=== PATIENT | male | born 1955 | race Caucasian/White ===

== ENCOUNTER → 2016-12-04 | Outpatient (CLI) | payer BC ==
[2016-12-04 07:38] LABS: Blood Urea Nitrogen 17 mg/dL (9-20); Non-African American GFR(MDRD) >60 (>60 ml/min/1.73 sqM)
== END | disposition home or self-care (01) ==
LOC: LABWHC1 06:53
PROVIDERS: ATTEND Anesthesiology
DX: Z01.812 Encounter for preprocedural laboratory examination (principal)
CPT/HCPCS: 36415; 82565; 84520

== ENCOUNTER → 2017-02-27 | Outpatient (CLI) | payer BC ==
[2017-02-27 08:09] LABS: Anion Gap 12 mmol/L; Blood Urea Nitrogen 16 mg/dL (9-20); Calcium 8.9 mg/dL (8.4-10.2); Carbon Dioxide 27 mmol/L (22-30); Chloride 103 mmol/L (98-107); Cholesterol 196 mg/dL (<200); Glucose 104 mg/dL (74-99); HDL Cholesterol 40 mg/dL (40-60); Non-African American GFR(MDRD) >60 (>60 ml/min/1.73 sqM); Potassium 4.2 mmol/L (3.5-5.1); Sodium 142 mmol/L (137-145); Triglycerides 310 mg/dL (<150)
== END | disposition home or self-care (01) ==
LOC: LABWHC1 07:02
PROVIDERS: ATTEND Family Medicine
DX: I10 Essential (primary) hypertension (principal)
CPT/HCPCS: 36415; 80048; 80061

== ENCOUNTER → 2017-09-10 | Outpatient (CLI) | payer BC | END | disposition home or self-care (01) | LOC: LABPAT 15:02 | PROVIDERS: ATTEND Orthopaedic Surgery | DX: Z01.812 Encounter for preprocedural laboratory examination (principal) | CPT/HCPCS: 86850; 86900; 86901; 87070 ==

== ENCOUNTER 2020-10-12 05:56 | Inpatient (IN) | payer SELFPAY ==
--- NOTE | 2020-10-12 06:52 | ED ---
General Adult HPI - General Chief complaint: Shortness of Breath Stated complaint: JOJO Time Seen by Provider: 10/12/20 06:01 Source: patient, RN notes reviewed Mode of arrival: ambulatory Limitations: no limitations - History of Present Illness Initial comments: This a 64-year-old male presents emergency Department with chief complaint of shortness of breath, cough congestion. Patient states she's been sick for last 11 days. Patient states is progressively worsening last 3-4 days. Patient states he has some shortness of breath and productive cough. He has no chest pain. Patient states that his is positive for covid. Patient reports no f van. Patient denies Abdominal issues no GI symptoms including nausea vomiting diarrhea constipation. Has no prior pulmonary cardiac disease. - Related Data Home Medications Medication Instructions Recorded Confirmed Omeprazole 20 mg PO BID 08/19/15 09/20/17 lisinopriL [Lisinopril] 20 mg PO DAILY 08/19/15 09/20/17 Fish Oil/Dha/Epa [Fish Oil 1,200 1 cap PO BID 10/20/15 09/20/17 mg Fish Oil] Potassium 99 mg PO DAILY 10/20/15 09/20/17 Tamsulosin HCl 0.4 mg PO HS 09/23/16 09/20/17 Morphine Sulfate ER [Ms Contin] 30 mg PO Q12HR 09/16/17 09/20/17 Multivitamin [Men's Multi-Vitamin] 1 tab PO DAILY 09/16/17 09/20/17 Magnesium Oxide [Mag-Ox] 250 mg PO BID 09/20/17 09/20/17 Pregabalin [Lyrica] 200 mg PO BID 09/20/17 09/20/17 Previous Rx's Medication Instructions Recorded Aspirin 325 mg PO BID #60 tab 09/21/17 Cefuroxime [Ceftin] 250 mg PO BID #20 tab 09/21/17 HYDROcodone/APAP 7.5-325MG [[place] 1 tab PO Q4H PRN #28 tab 09/21/17 7.5-325] Meloxicam [Mobic] 7.5 mg PO DAILY #30 tab 09/21/17 Sennosides-Docusate Sodium 2 each PO HS tab 09/21/17 [Senokot-S] Allergies Allergy/AdvReac Type Severity Reaction Status Date / Time cat dander Allergy Cough Verified 09/20/17 09:52 grass pollen Allergy Cough Verified 09/20/17 09:52 mold Allergy Cough Verified 09/20/17 09:52 Review of Systems ROS Statement: Those systems with pertinent positive or pertinent negative responses have been documented in the HPI. ROS Other: All systems not noted in ROS Statement are negative. Past Medical History Past Medical History: GERD/Reflux, Hyperlipidemia, Hypertension, Musculoskeletal Disorder, Osteoarthritis (OA), Prostate Disorder Additional Past Medical History / Comment(s): Hypertension and hypertensive cardio vascular disease, hyperlipidemia, GERD, osteoarthritis, degenerative disc disease of the lumbar spine status post discectomy with fusion and bilateral neuropathy, BPH. History of Any Multi-Drug Resistant Organisms: None Reported Past Surgical History: Back Surgery, Joint Replacement, Tonsillectomy Additional Past Surgical History / Comment(s): CERVICAL FUSION. L5-S1 DISECTOMY 2008. L4-L5 LAMINECTOMY X 2 2007. Hardware removal and placement of screw pedicles and bone cadaver was done by Dr. Arguello at the [facility] 07/21/2010. Colonoscopy 05/10/2008 followed by anyone in May 11 [id number].hip replacement 08/26/[address] Campa. COLONOSCOPY. EGD Past Anesthesia/Blood Transfusion Reactions: No Reported Reaction Past Psychological History: No Psychological Hx Reported Smoking Status: Never smoker Past Alcohol Use History: Daily, Occasional Past Drug Use History: None Reported - Past Family History Daughter(s) Family Medical History: No Reported History Mother Family Medical History: Cancer (Breast cancer at age 53) Additional Family Medical History / Comment(s): breast cancer Sister(s) Family Medical History: Cancer (Breast cancer and skin CANCER) Father History Unknown: Yes Family Medical History: Cancer (Skin cancer), Hypertension General Exam Limitations: no limitations General appearance: alert, in no apparent distress Head exam: Present: atraumatic, normocephalic, normal inspection Eye exam: Present: normal appearance, PERRL, EOMI. Absent: scleral icterus, conjunctival injection, periorbital swelling ENT exam: Present: normal exam, normal oropharynx, mucous membranes moist Neck exam: Present: normal inspection, full ROM. Absent: tenderness, meningismus, lymphadenopathy Respiratory exam: Present: wheezes, decreased breath sounds. Absent: respiratory distress, rales, rhonchi, stridor Cardiovascular Exam: Present: regular rate, normal rhythm, normal heart sounds. Absent: systolic murmur, diastolic murmur, rubs, gallop, clicks GI/Abdominal exam: Present: soft, normal bowel sounds. Absent: distended, tenderness, guarding, rebound, rigid Course Vital Signs 10/12/20 10/12/20 06:06 07:17 Temperature 98.5 F Pulse Rate 83 84 Respiratory 20 20 Rate Blood Pressure 131/77 127/67 O2 Sat by Pulse 94 L 97 Oximetry Medical Decision Making - Medical Decision Making EKG performed at 6:28 normal sinus rhythm rate of 88 ND 166 QRS 92 QT status QTC 346/418 64-year-old presented for cough congestion shortness of breath. Patient does have chronic virus pneumonia. Patient remains to be short of breath, hypoxic on room air patient will be admitted for further treatment. Case discussed with Dr. zuniga - Lab Data Result diagrams: 10/12/20 06:49 10/12/20 06:49 Lab Results 10/12/20 10/12/20 10/12/20 Range/Units 06:49 06:49 06:49 WBC 5.5 (3.8-10.6) k/uL RBC 4.29 L (4.30-5.90) m/uL Hgb 14.1 (13.0-17.5) gm/dL Hct 38.9 L (39.0-53.0) % MCV 90.6 (80.0-100.0) fL MCH 32.9 (25.0-35.0) pg MCHC 36.4 (31.0-37.0) g/dL RDW 11.3 L (11.5-15.5) % Plt Count 117 L (150-450) k/uL MPV 7.9 Neutrophils % 85 % Lymphocytes % 9 % Monocytes % 5 % Eosinophils % 0 % Basophils % 1 % Neutrophils # 4.7 (1.3-7.7) k/uL Lymphocytes # 0.5 L (1.0-4.8) k/uL Monocytes # 0.3 (0-1.0) k/uL Eosinophils # 0.0 (0-0.7) k/uL Basophils # 0.0 (0-0.2) k/uL PT 9.4 (9.0-12.0) sec INR 0.9 (<1.2) APTT 24.9 (22.0-30.0) sec D-Dimer 0.25 (<0.60) mg/L FEU Sodium 134 L (137-145) mmol/L Potassium 4.1 (3.5-5.1) mmol/L Chloride 102 (98-107) mmol/L Carbon Dioxide 23 (22-30) mmol/L Anion Gap 9 mmol/L BUN 17 (9-20) mg/dL Creatinine 0.79 (0.66-1.25) mg/dL Est GFR (CKD-EPI)AfAm >90 (>60 ml/min/1.73 sqM) Est GFR (CKD-EPI)NonAf >90 (>60 ml/min/1.73 sqM) Glucose 117 H (74-99) mg/dL Plasma Lactic Acid Jesus Alberto (0.7-2.0) mmol/L Calcium 8.4 (8.4-10.2) mg/dL Magnesium 1.8 (1.6-2.3) mg/dL Total Bilirubin 0.8 (0.2-1.3) mg/dL AST 36 (17-59) U/L ALT 25 (4-49) U/L Alkaline Phosphatase 73 (38-126) U/L Troponin I (0.000-0.034) ng/mL C-Reactive Protein 49.4 H (<10.0) mg/L NT-Pro-B Natriuret Pep pg/mL Total Protein 6.6 (6.3-8.2) g/dL Albumin 3.9 (3.5-5.0) g/dL Coronavirus (PCR) (Not Detectd) 10/12/20 10/12/20 10/12/20 Range/Units 06:49 06:49 06:49 WBC (3.8-10.6) k/uL RBC (4.30-5.90) m/uL Hgb (13.0-17.5) gm/dL Hct (39.0-53.0) % MCV (80.0-100.0) fL MCH (25.0-35.0) pg MCHC (31.0-37.0) g/dL RDW (11.5-15.5) % Plt Count (150-450) k/uL MPV Neutrophils % % Lymphocytes % % Monocytes % % Eosinophils % % Basophils % % Neutrophils # (1.3-7.7) k/uL Lymphocytes # (1.0-4.8) k/uL Monocytes # (0-1.0) k/uL Eosinophils # (0-0.7) k/uL Basophils # (0-0.2) k/uL PT (9.0-12.0) sec INR (<1.2) APTT (22.0-30.0) sec D-Dimer (<0.60) mg/L FEU Sodium (137-145) mmol/L Potassium (3.5-5.1) mmol/L Chloride (98-107) mmol/L Carbon Dioxide (22-30) mmol/L Anion Gap mmol/L BUN (9-20) mg/dL Creatinine (0.66-1.25) mg/dL Est GFR (CKD-EPI)AfAm (>60 ml/min/1.73 sqM) Est GFR (CKD-EPI)NonAf (>60 ml/min/1.73 sqM) Glucose (74-99) mg/dL Plasma Lactic Acid Jesus Alberto 0.9 (0.7-2.0) mmol/L Calcium (8.4-10.2) mg/dL Magnesium (1.6-2.3) mg/dL Total Bilirubin (0.2-1.3) mg/dL AST (17-59) U/L ALT (4-49) U/L Alkaline Phosphatase (38-126) U/L Troponin I <0.012 (0.000-0.034) ng/mL C-Reactive Protein (<10.0) mg/L NT-Pro-B Natriuret Pep 73 pg/mL Total Protein (6.3-8.2) g/dL Albumin (3.5-5.0) g/dL Coronavirus (PCR) (Not Detectd) 10/12/20 Range/Units 06:50 WBC (3.8-10.6) k/uL RBC (4.30-5.90) m/uL Hgb (13.0-17.5) gm/dL Hct (39.0-53.0) % MCV (80.0-100.0) fL MCH (25.0-35.0) pg MCHC (31.0-37.0) g/dL RDW (11.5-15.5) % Plt Count (150-450) k/uL MPV Neutrophils % % Lymphocytes % % Monocytes % % Eosinophils % % Basophils % % Neutrophils # (1.3-7.7) k/uL Lymphocytes # (1.0-4.8) k/uL Monocytes # (0-1.0) k/uL Eosinophils # (0-0.7) k/uL Basophils # (0-0.2) k/uL PT (9.0-12.0) sec INR (<1.2) APTT (22.0-30.0) sec D-Dimer (<0.60) mg/L FEU Sodium (137-145) mmol/L Potassium (3.5-5.1) mmol/L Chloride (98-107) mmol/L Carbon Dioxide (22-30) mmol/L Anion Gap mmol/L BUN (9-20) mg/dL Creatinine (0.66-1.25) mg/dL Est GFR (CKD-EPI)AfAm (>60 ml/min/1.73 sqM) Est GFR (CKD-EPI)NonAf (>60 ml/min/1.73 sqM) Glucose (74-99) mg/dL Plasma Lactic Acid Jesus Alberto (0.7-2.0) mmol/L Calcium (8.4-10.2) mg/dL Magnesium (1.6-2.3) mg/dL Total Bilirubin (0.2-1.3) mg/dL AST (17-59) U/L ALT (4-49) U/L Alkaline Phosphatase (38-126) U/L Troponin I (0.000-0.034) ng/mL C-Reactive Protein (<10.0) mg/L NT-Pro-B Natriuret Pep pg/mL Total Protein (6.3-8.2) g/dL Albumin (3.5-5.0) g/dL Coronavirus (PCR) Detected A (Not Detectd) Disposition Clinical Impression: Pneumonia due to COVID-19 virus, Hypoxia Disposition: ADMITTED IP TO THIS [facility] Condition: Fair Referrals: Jose Guadalupe Cardenas MD [Primary Care Provider] - 1-2 days
[2020-10-12 06:57] LABS: Basophils % (A) 1 %; Eosinophils % (A) 0 %; HCT 38.9 % (39.0-53.0); HGB 14.1 gm/dL (13.0-17.5); Lymphocytes # (A) 0.5 k/uL (1.0-4.8); Lymphocytes % (A) 9 %; MCH 32.9 pg (25.0-35.0); MCHC 36.4 g/dL (31.0-37.0); MCV 90.6 fL (80.0-100.0); Mean Platelet Volume 7.9; Monocytes # (A) 0.3 k/uL (0-1.0); Monocytes % (A) 5 %; Neutrophils # (A) 4.7 k/uL (1.3-7.7); Neutrophils % (A) 85 %; Platelet Count 117 k/uL (150-450); RBC 4.29 m/uL (4.30-5.90); RDW 11.3 % (11.5-15.5); WBC 5.5 k/uL (3.8-10.6)
[2020-10-12 07:07] LABS: ALT 25 U/L (4-49); AST 36 U/L (17-59); African American GFR (CKD) >90 (>60 ml/min/1.73 sqM); Albumin 3.9 g/dL (3.5-5.0); Alkaline Phosphatase 73 U/L (38-126); Anion Gap 9 mmol/L; Blood Urea Nitrogen 17 mg/dL (9-20); Calcium 8.4 mg/dL (8.4-10.2); Carbon Dioxide 23 mmol/L (22-30); Chloride 102 mmol/L (98-107); Glucose 117 mg/dL (74-99); Magnesium 1.8 mg/dL (1.6-2.3); Non-African American GFR(CKD) >90 (>60 ml/min/1.73 sqM); Potassium 4.1 mmol/L (3.5-5.1); Sodium 134 mmol/L (137-145); Total Bilirubin 0.8 mg/dL (0.2-1.3); Total Protein 6.6 g/dL (6.3-8.2)
[2020-10-12 07:16] LABS: D-Dimer 0.25 mg/L FEU (<0.60); INR 0.9 (<1.2); Partial Thromboplastin Time 24.9 sec (22.0-30.0); Prothrombin Time 9.4 sec (9.0-12.0)
--- NOTE | 2020-10-12 07:21 | XR ---
EXAMINATION TYPE: XR chest 2V DATE OF EXAM: 10/12/2020 COMPARISON: 03/20/2014 HISTORY: Shortness of breath TECHNIQUE: Frontal and lateral views of the chest are obtained. FINDINGS: Scattered senescent parenchymal changes noted. Hyperinflation compatible with COPD. Patchy density at the lung bases is suspicious for developing pneumonia. Heart size is stable. Mediastinal structures are stable and grossly unremarkable. No evidence for hilar prominence. Degenerative changes dorsal spine. IMPRESSION: 1. Patchy density at the lung bases is suspicious for developing pneumonia.
[2020-10-12 08:09] LABS: C Reactive Protein 49.4 mg/L (<10.0)
[2020-10-12] MEDS ORDERED: ALBUTEROL HFA INHALER INHALATION PRN (08:12)
[2020-10-12] MEDS ORDERED: ACETAMINOPHEN TAB 325 MG TAB PO PRN (08:12)
[2020-10-12] MEDS ORDERED: guaiFENesin-Coden 100-10MG/5ML 10 ML CUP PO PRN (09:24)
[2020-10-12] MEDS: ENOXAPARIN 40 MG/0.4 ML SYRINGE SQ SCH (09:34)
[2020-10-12] MEDS: ASCORBIC ACID 500 MG TAB PO SCH (09:34)
[2020-10-12] MEDS: BENZONATATE 100 MG CAP PO PRN (09:34)
[2020-10-12] MEDS: dexAMETHasone 2 MG TAB PO SCH (09:34)
[2020-10-12] MEDS: ZINC SULFATE 220 MG CAP PO SCH (09:40)
[2020-10-12] MEDS ORDERED: KETOROLAC 15 MG/ML 1 ML VIAL IVP SCH (12:00)
--- NOTE | 2020-10-12 12:06 | P.HPIM ---
History of Present Illness H&P Date: 10/12/20 HISTORY OF PRESENT ILLNESS This is a 64-year-old male one of Dr. Cardenas with a previous medical history for hypertension, hyperlipidemia, gastroesophageal reflux disease, degenerative disc disease of the lumbar spine and the cervical spine status post multiple surgical interventions. Patient states that he has had symptoms of covert for 11 days. His was diagnosed last week and had the same symptoms. They had most likely obtaining this from her [id number] that was positive for covert. He complains of severe headache, cough, white sputum production, loss of appetite. He states he has lost 5 pounds. He states he is not eating very much but thought he was drinking sufficiently although he is not urinating very much. He complains of generalized weakness. He denies having any diarrhea. Patient came into [facility] emergency center for evaluation. COVID-19 positive. Temperature 100.4, heart rate 84, blood pressure 125/71, p ulse ox 96% on 2 L nasal cannula. WBC 5.5, hemoglobin 14.1. Lymphopenia at 0.5. Sodium 134, creatinine 0.79, potassium 4.1. Magnesium 1.8, liver function tests normal. LDH 661, C-reactive protein 49.4. Chest x-ray reveals patchy density of the lung bases suspicious for developing pneumonia. EKG is sinus rhythm with no acute ST changes. Patient started on vitamin C, vitamin D, zinc, Robitussin with codeine, dexamethasone 6 mg daily, Tessalon Perles, Lovenox. Consult with Dr. Moreno. REVIEW OF SYSTEMS Constitutional: Reports fever, Reports chills,Reports sweats. Reports weight change. Reports weakness, fatigue or lethargy. No daytime sleepiness. EENT: Reports headache. No blurred vision or double vision, no loss of vision. No nasal drainage or congestion. No epistaxis. No sore throat. Lungs: Reports shortness of breath, reports dyspnea with exertion, Reports cough, Reports sputum production. No wheezing. Cardiovascular: Reports chest pain, no lower extremity edema. No palpitations. No paroxysmal nocturnal dyspnea. No orthopnea. No lightheadedness or dizziness. No syncopal episodes. Abdominal: No abdominal pain. No nausea, vomiting. No diarrhea. No constipation. No bloody or tarry stools. Reports loss of appetite. Genitourinary: No dysuria, increased frequency, urgency. No urinary retention. Musculoskeletal: Reports myalgias. Reports muscle weakness, no gait dysfunction, no frequent falls. No back pain. No neck pain. Integumentary: No wounds, no lesions. No rash or pruritus. No unusual bruising. Neurologic: No aphasia. No facial droop. No change in mentation. No head injury. No headache. Psychiatric: No depression. No anxiety. Endocrine: No abnormal blood sugars. SOCIAL HISTORY Patient quit smoking more than 30 years ago. He drinks alcohol socially. He denies any medical marijuana, marijuana or street drug use. Patient retired from [employer]. He lives at home with his . FAMILY HISTORY Mother at age 54 from breast cancer. Father is alive [id number] with history of hypertension. Sisters alive she has a history of cancer. PHYSICAL EXAMINATION Gen: This is extended to-year-old male. He is resting in the ER stretcher. No acute respiratory distress noted at rest. HEENT: Head is atraumatic, normocephalic. Pupils equal, round. Sclerae is anicteric. Oral mucous membranes slightly dry. NECK: Supple. No JVD. No lymphadenopathy. No thyromegaly. LUNGS: Crackles to the bilateral bases. No intercostal retractions. HEART: Regular rate and rhythm. No murmur. ABDOMEN: Soft. Bowel sounds are present. No masses. No tenderness. EXTREMITIES: No pedal edema. No calf tenderness. Dorsalis pedis palpable bilaterally. NEUROLOGICAL: Patient is awake, alert and oriented x3. Cranial nerves 2 through 12 are grossly intact. ASSESSMENT AND PLAN 1. Covid 19 pneumonia. Patient admitted to the MedSurg floor. Continue vitamin C, vitamin D, zinc, Robitussin with codeine, dexamethasone 6 mg daily, Tessalon Perles, Lovenox. Consult with Dr. Moreno. Continue oxygen supp lementation as necessary. 2. Hypertension and hypertensive cardiovascular disease. Continue lisinopril 20 mg orally once every day. 3. GERD. Continue omeprazole 20 mg orally twice per day. 4. Hyperlipidemia. Continue statin. 5. BPH. Continue Flomax 0.4 mg daily. 6. DVT prophylaxis. Lovenox subcu. 7. GI prophylaxis. Continue omeprazole 20 mg orally twice every day. Patient will be admitted to the hospital for a minimum of 2 night stay. DISCHARGE PLAN Return home. Impression and plan of care have been directed as dictated by the signing physician. María Torres nurse practitioner acting as scribe for signing physician.9 Past Medical History Past Medical History: GERD/Reflux, Hyperlipidemia, Hypertension, Musculoskeletal Disorder, Osteoarthritis (OA), Prostate Disorder Additional Past Medical History / Comment(s): Hypertension and hypertensive cardio vascular disease, hyperlipidemia, GERD, osteoarthritis, degenerative disc disease of the lumbar spine status post discectomy with fusion and bilateral neuropathy, BPH. History of Any Multi-Drug Resistant Organisms: None Reported Past Surgical History: Back Surgery, Joint Replacement, Tonsillectomy Additional Past Surgical History / Comment(s): CERVICAL FUSION. L5-S1 DISECTOMY 2008. L4-L5 LAMINECTOMY X 2 2007. Hardware removal and placement of screw pedicles and bone cadaver was done by Dr. Arguello at the [facility] 07/21/2010. Colonoscopy 05/10/2008 followed by anyone in May 11 [id number].hip replacement 08/26/[address] Campa. COLONOSCOPY. EGD Past Anesthesia/Blood Transfusion Reactions: No Reported Reaction Past Psychological History: No Psychological Hx Reported Smoking Status: Never smoker Past Alcohol Use History: Daily, Occasional Past Drug Use History: None Reported - Past Family History Daughter(s) Family Medical History: No Reported History Mother Family Medical History: Cancer (Breast cancer at age 53) Additional Family Medical History / Comment(s): breast cancer Sister(s) Family Medical History: Cancer (Breast cancer and skin CANCER) Father History Unknown: Yes Family Medical History: Cancer (Skin cancer), Hypertension Medications and Allergies Home Medications Medication Instructions Recorded Confirmed Type Omeprazole 20 mg PO BID 08/19/15 10/12/20 History lisinopriL [Lisinopril] 20 mg PO DAILY 08/19/15 10/12/20 History Tamsulosin HCl 0.4 mg PO DAILY 09/23/16 10/12/20 History Multivitamin [Men's Multi-Vitamin] 1 tab PO DAILY 09/16/17 10/12/20 History Ibuprofen [Motrin] 600 mg PO Q8HR PRN 10/12/20 10/12/[address] [place]-3 Fatty Acids/Fish Oil [Fish 1 cap PO DAILY 10/12/20 10/12/20 History Oil 1,000 mg Softgel] Rosuvastatin [Crestor] 10 mg PO HS 10/12/20 10/12/20 History Allergies Allergy/AdvReac Type Severity Reaction Status Date / Time cat dander Allergy Cough Verified 10/12/20 10:01 grass pollen Allergy Cough Verified 10/12/20 10:01 mold Allergy Cough Verified 10/12/20 10:01 Physical Exam Vitals: Vital Signs Temp Pulse Resp BP Pulse Ox 10/12/20 08:19 100.4 F H 84 18 125/71 96 10/12/20 07:17 84 20 127/67 97 10/12/20 06:06 98.5 F 83 20 131/77 94 L Intake and Output 10/11/20 10/12/20 10/12/20 22:59 06:59 14:59 Other: Weight 90.718 kg Results CBC & Chem 7: 10/12/20 06:49 10/12/20 06:49 Labs: Abnormal Lab Results - Last 24 Hours (Table) 10/12/20 10/12/20 10/12/20 Range/Units 06:49 06:49 06:49 RBC 4.29 L (4.30-5.90) m/uL Hct 38.9 L (39.0-53.0) % RDW 11.3 L (11.5-15.5) % Plt Count 117 L (150-450) k/uL Lymphocytes # 0.5 L (1.0-4.8) k/uL Sodium 134 L (137-145) mmol/L Glucose 117 H (74-99) mg/dL Lactate Dehydrogenase 661 H (313-618) U/L C-Reactive Protein 49.4 H (<10.0) mg/L Coronavirus (PCR) (Not Detectd) 10/12/20 Range/Units 06:50 RBC (4.30-5.90) m/uL Hct (39.0-53.0) % RDW (11.5-15.5) % Plt Count (150-450) k/uL Lymphocytes # (1.0-4.8) k/uL Sodium (137-145) mmol/L Glucose (74-99) mg/dL Lactate Dehydrogenase (313-618) U/L C-Reactive Protein (<10.0) mg/L Coronavirus (PCR) Detected A (Not Detectd)
[2020-10-12] MEDS: ALBUTEROL HFA INHALER INHALATION SCH ×3 (13:50→20:51)
[2020-10-12] MEDS: ACETAMINOPHEN TAB 500 MG TAB PO SCH ×3 (14:53→22:22)
[2020-10-12] MEDS ORDERED: REMDESIVIR (EUA) 200 MG in SODIUM CHLORIDE 0.9% 250 ML IVPB ONE (15:00)
--- NOTE | 2020-10-12 17:31 | P.CNPUL ---
History of Present Illness Consult date: 10/12/20 Reason for consult: pneumonia History of present illness: 62-year-old male patient presents exposed to several family members with Covid 19 infection. The patient stated that his symptoms started approximately 10 days ago. He was having major weakness and fatigue and tiredness. Around 3 days ago started having some increased cough and congestion and worsening shortness of breath. He came into the hospital with generalized weakness and hy poxemia. Initially was found to be hypoxic with a pulse ox of in the mid 80s. The patienton oxygen at 2 L and improved. He is currently on 2 L of oxygen by nasal cannula with pulse ox of 96%. White second of 5.5. He does have lymphopenia with a lymphocyte count of 0.5. LDH is at 661, C-reactive protein is at 49, chest x-ray showing some patchy density in the lungs most on the left compared to the right. EKG showing no acute abnormalities. No nausea. No vomiting. No diarrhea. No change in sense of taste or smell. No altered mentation. He is comorbid conditions include hypertension and hyperlipidemia and he has undergone multiple surgeries on his back and his neck for degenerative disc disease. Review of Systems Constitutional: Reports fatigue, Reports fever, Reports poor appetite, Reports weakness, Reports weight loss Eyes: denies as per HPI, denies blurred vision, denies bulging eye, denies decreased vision, denies diplopia, denies discharge, denies dry eye, denies irritation, denies itching, denies pain, denies photophobia, denies loss of peripheral vision, denies loss of vision, denies tunnel vision/blind spots Ears: deny: decreased hearing, ear discharge, earache, tinnitus Ears, nose, mouth and throat: Reports as per HPI Breasts: absent: as per HPI, gynecomastia Cardiovascular: Reports decreased exercise tolerance, Reports dyspnea on exertion Respiratory: Reports as per HPI, Reports dyspnea Gastrointestinal: Reports as per HPI, Reports loss of appetite Genitourinary: Reports as per HPI Musculoskeletal: Reports as per HPI Musculoskeletal: absent: ankle pain, ankle stiffness, ankle swelling, as per HPI, elbow pain, elbow stiffness, elbow swelling, foot pain, foot stiffness, foot swelling, hand pain, hand stiffness, hand swelling, hip pain, hip stiffness, hip swelling, knee pain, knee stiffness, knee swelling, shoulder pain, shoulder stiffness, shoulder swelling, wrist pain, wrist stiffness, wrist swelling Integumentary: Reports as per HPI Neurological: Reports as per HPI, Reports weakness Psychiatric: Reports as per HPI Endocrine: Reports as per HPI, Reports weight change Hematologic/Lymphatic: Reports as per HPI Allergic/Immunologic: Reports as per HPI Past Medical History Past Medical History: GERD/Reflux, Hyperlipidemia, Hypertension, Musculoskeletal Disorder, Osteoarthritis (OA), Prostate Disorder Additional Past Medical History / Comment(s): Hypertension and hypertensive cardio vascular disease, hyperlipidemia, GERD, osteoarthritis, degenerative disc disease of the lumbar spine status post discectomy with fusion and bilateral neuropathy, BPH. History of Any Multi-Drug Resistant Organisms: None Reported Past Surgical History: Back Surgery, Joint Replacement, Tonsillectomy Additional Past Surgical History / Comment(s): CERVICAL FUSION. L5-S1 DISECTOMY 2008. L4-L5 LAMINECTOMY X 2 2007. Hardware removal and placement of screw pedicles and bone cadaver was done by Dr. Arguello at the [facility] 07/21/2010. Colonoscopy 05/10/2008 followed by anyone in May 11 [id number].hip replacement 08/26/[address] Campa. COLONOSCOPY. EGD Past Anesthesia/Blood Transfusion Reactions: No Reported Reaction Past Psychological History: No Psychological Hx Reported Smoking Status: Never smoker Past Alcohol Use History: Daily, Occasional Past Drug Use History: None Reported - Past Family History Daughter(s) Family Medical History: No Reported History Mother Family Medical History: Cancer (Breast cancer at age 53) Additional Family Medical History / Comment(s): breast cancer Sister(s) Family Medical History: Cancer (Breast cancer and skin CANCER) Father History Unknown: Yes Family Medical History: Cancer (Skin cancer), Hypertension Medications and Allergies Home Medications Medication Instructions Recorded Confirmed Type Omeprazole 20 mg PO BID 08/19/15 10/12/20 History lisinopriL [Lisinopril] 20 mg PO DAILY 08/19/15 10/12/20 History Tamsulosin HCl 0.4 mg PO DAILY 09/23/16 10/12/20 History Multivitamin [Men's Multi-Vitamin] 1 tab PO DAILY 09/16/17 10/12/20 History Ibuprofen [Motrin] 600 mg PO Q8HR PRN 10/12/20 10/12/20 History [place]-3 Fatty Acids/Fish Oil [Fish 1 cap PO DAILY 10/12/20 10/12/20 History Oil 1,000 mg Softgel] Rosuvastatin [Crestor] 10 mg PO HS 10/12/20 10/12/20 History Allergies Allergy/AdvReac Type Severity Reaction Status Date / Time cat dander Allergy Cough Verified 10/12/20 10:01 grass pollen Allergy Cough Verified 10/12/20 10:01 mold Allergy Cough Verified 10/12/20 10:01 Physical Exam Vitals: Vital Signs Temp Pulse Pulse Resp BP BP Pulse Ox 10/12/20 15:00 97.7 F 71 16 117/69 96 10/12/20 11:30 98 F 78 16 115/65 96 10/12/20 09:41 98.1 F 80 18 118/68 96 10/12/20 08:19 100.4 F H 84 18 125/71 96 10/12/20 07:17 84 20 127/67 97 10/12/20 06:06 98.5 F 83 20 131/77 94 L Intake and Output 10/12/20 10/12/20 10/12/20 06:59 14:59 22:59 Intake Total 320 Balance 320 Intake: Oral 320 Other: # Voids 1 Weight 90.718 kg 90.718 kg The patient appeared well nourished and normally developed. Vital signs as documented. Head exam is unremarkable. No scleral icterus or corneal arcus noted. Neck is without jugular venous distension, thyromegaly, or carotid bruits. Carotid upstrokes are brisk bilaterally. Lungs are clear to auscultation and percussion. Cardiac exam reveals the PMI to be normally sized and situated. Rhythm is regular. First and second heart sounds normal. No murmurs, rubs or gallops. Abdominal exam reveals normal bowel sounds, no masses, no organomegaly and no aortic enlargement. Extremities are nonedematous and both femoral and pedal pulses are normal.Examination of the skin revealed no evidence of significant rashes, suspicious appearing nevi or other concerning lesions.Neur ologically, the patient is awake and alert and the patient does not have any focal neurological deficit. Cranial nerves are essentially intact. Results - Laboratory Findings CBC and BMP: 10/12/20 06:49 10/12/20 06:49 PT/INR, D-dimer PT 9.4 sec (9.0-12.0) 10/12/20 06:49 INR 0.9 (<1.2) 10/12/20 06:49 D-Dimer 0.25 mg/L FEU (<0.60) 10/12/20 06:49 Abnormal lab findings: Abnormal Labs 10/12/20 10/12/20 10/12/20 06:49 06:49 06:49 RBC 4.29 L Hct 38.9 L RDW 11.3 L Plt Count 117 L Lymphocytes # 0.5 L Sodium 134 L Glucose 117 H Lactate Dehydrogenase 661 H C-Reactive Protein 49.4 H Coronavirus (PCR) 10/12/20 06:50 RBC Hct RDW Plt Count Lymphocytes # Sodium Glucose Lactate Dehydrogenase C-Reactive Protein Coronavirus (PCR) Detected A - Diagnostic Findings Chest x-ray: image reviewed Assessment and Plan Plan: 1 acute Covid 19 related pneumonia with secondary shortness of breath and mild hypoxemia currently on today's election by nasal cannula 2 constitutions symptoms secondary to Covid 19 related infection 3 hypertension 4 hyperlipidemia 5 BPH 6 acid reflux Plan Initiate treatment with by mouth Decadron, Remdesivir , and addition to a combination of vitamin C, melatonin, Pepcid, zinc. Monitor inflammatory markers Monitor the oxygenation Resume medications We'll continue to follow. Condition stable for now.
[2020-10-12] MEDS: ATORVASTATIN 20 MG TAB PO SCH (20:49)
[2020-10-13] MEDS: ACETAMINOPHEN TAB 500 MG TAB PO SCH ×3 (06:00→16:57)
[2020-10-13] MEDS: PANTOPRAZOLE 40 MG TABLET PO SCH (08:41)
[2020-10-13] MEDS: ENOXAPARIN 40 MG/0.4 ML SYRINGE SQ SCH (08:41)
[2020-10-13] MEDS: lisinopriL 20 MG TAB PO SCH (08:41)
[2020-10-13] MEDS: ASCORBIC ACID 500 MG TAB PO SCH (08:41)
[2020-10-13] MEDS: dexAMETHasone 2 MG TAB PO SCH (08:42)
[2020-10-13] MEDS: TAMSULOSIN 0.4 MG CAP.ER.24H PO SCH (08:42)
[2020-10-13] MEDS: ZINC SULFATE 220 MG CAP PO SCH (08:42)
[2020-10-13] MEDS: CHOLECALCIFEROL 1,000 UNIT TAB PO SCH (08:42)
[2020-10-13] MEDS: MULTIVITAMINS, THERA 1 EACH TAB PO SCH (08:42)
[2020-10-13] MEDS: ALBUTEROL HFA INHALER INHALATION SCH ×4 (08:53→20:00)
[2020-10-13 10:05] LABS: Ferritin 295.5 ng/mL (22.0-322.0)
[2020-10-13] MEDS: BENZONATATE 100 MG CAP PO PRN (10:17)
--- NOTE | 2020-10-13 12:19 | P.PN ---
Subjective Progress Note Date: 10/13/20 HISTORY OF PRESENT ILLNESS This is a 64-year-old male one of Dr. Cardenas with a previous medical history for hypertension, hyperlipidemia, gastroesophageal reflux disease, d egenerative disc disease of the lumbar spine and the cervical spine status post multiple surgical interventions. Patient states that he has had symptoms of covert for 11 days. His was diagnosed last week and had the same symptoms. They had most likely obtaining this from her [id number] that was positive for covert. He complains of severe headache, cough, white sputum production, loss of appetite. He states he has lost 5 pounds. He states he is not eating very much but thought he was drinking sufficiently although he is not urinating very much. He complains of generalized weakness. He denies having any diarrhea. Patient came into [facility] emergency center for evaluation. COVID-19 positive. Temperature 100.4, heart rate 84, blood pressure 125/71, pulse ox 96% on 2 L nasal cannula. WBC 5.5, hemoglobin 14.1. Lymphopenia at 0.5. Sodium 134, creatinine 0.79, potassium 4.1. Magnesium 1.8, liver function tests normal. LDH 661, C-reactive protein 49.4. Chest x-ray reveals patchy density of the lung bases suspicious for developing pneumonia. EKG is sinus rhythm with no acute ST changes. Patient started on vitamin C, vitamin D, zinc, Robitussin with codeine, dexamethasone 6 mg daily, Tessalon Perles, Lovenox. Consult with Dr. Moreno. 10/13: Patient has been seen by pulmonary medicine is started on Remdesivir 12/27. Patient states that his appetite is better today. He still continues to have some shortness of breath with activity and has some weakness but feeling better in general. He has been afebrile, heart rate 70, blood pressure 127/72, pulse ox 95% on 2 L cannula. Patient encouraged to increase fluids with possible discharge home tomorrow. REVIEW OF SYSTEMS Constitutional: Reports fever, Reports chills,Reports sweats. Reports weight change. Reports weakness, fatigue or lethargy. No daytime sleepiness. EENT: Reports headache. No blurred vision or double vision, no loss of vision. No nasal drainage or congestion. No epistaxis. No sore throat. Lungs: Reports shortness of breath, reports dyspnea with exertion, Reports cough, Reports sputum production. No wheezing. Cardiovascular: Reports chest pain, no lower extremity edema. No palpitations. No paroxysmal nocturnal dyspnea. No orthopnea. No lightheadedness or dizziness. No syncopal episodes. Abdominal: No abdominal pain. No nausea, vomiting. No diarrhea. No constipation. No bloody or tarry stools. Reports loss of appetite. Genitourinary: No dysuria, increased frequency, urgency. No urinary retention. Musculoskeletal: Reports myalgias. Reports muscle weakness, no gait dysfunction, no frequent falls. No back pain. No neck pain. Integumentary: No wounds, no lesions. No rash or pruritus. No unusual bruising. Neurologic: No aphasia. No facial droop. No change in mentation. No head injury. No headache. Psychiatric: No depression. No anxiety. Endocrine: No abnormal blood sugars. PHYSICAL EXAMINATION Gen: This is extended to-year-old male. He is resting in the ER stret nancy. No acute respiratory distress noted at rest. HEENT: Head is atraumatic, normocephalic. Pupils equal, round. Sclerae is anicteric. Oral mucous membranes slightly dry. NECK: Supple. No JVD. No lymphadenopathy. No thyromegaly. LUNGS: Crackles to the bilateral bases. No intercostal retractions. HEART: Regular rate and rhythm. No murmur. ABDOMEN: Soft. Bowel sounds are present. No masses. No tenderness. EXTREMITIES: No pedal edema. No calf tenderness. Dorsalis pedis palpable bilaterally. NEUROLOGICAL: Patient is awake, alert and oriented x3. Cranial nerves 2 through 12 are grossly intact. ASSESSMENT AND PLAN 1. Covid 19 pneumonia. Patient admitted to the [facility] floor. Continue vitamin C, vitamin D, zinc, Robitussin with codeine, dexamethasone 6 mg daily, Tessalon Perles, Lovenox. Consult with Dr. Josh canchola. Patient was started on Remdesivir, today dose 2/5. Continue oxygen supplementation as necessary. 2. Hypertension and hypertensive cardiovascular disease. Continue lisinopril 20 mg orally once every day. 3. GERD. Continue omeprazole 20 mg orally twice per day. 4. Hyperlipidemia. Continue statin. 5. BPH. Continue Flomax 0.4 mg daily. 6. DVT prophylaxis. Lovenox subcu. 7. GI prophylaxis. Continue omeprazole 20 mg orally twice every day. DISCHARGE PLAN Return home on Wednesday. Impression and plan of care have been directed as dictated by the signing physician. María Torres nurse practitioner acting as scribe for signing physician. Objective - Vital Signs Vital signs: Vital Signs Temp 97.3 F L 10/13/20 05:24 Pulse 70 10/13/20 05:24 Resp 20 10/13/20 05:24 BP 127/74 10/13/20 05:24 Pulse Ox 95 10/13/20 05:24 Intake & Output 10/12/20 10/13/20 10/13/20 18:59 06:59 18:59 Intake Total 320 1100 Balance 320 1100 Weight 90.718 kg Intake: Oral 320 1100 Other: # Voids 1 1 - Labs CBC & Chem 7: 10/12/20 06:49 10/12/20 06:49
[2020-10-13] MEDS: REMDESIVIR (EUA) 100 MG in SODIUM CHLORIDE 0.9% 250 ML IVPB SCH (14:45)
--- NOTE | 2020-10-13 16:21 | P.PN ---
Subjective Progress Note Date: 10/13/20 Principal diagnosis: CoVID 19 pneumonia 62-year-old male patient presents exposed to several family members with Covid 19 infection. The patient stated that his symptoms started approximately 10 days ago. He was having major weakness and fatigue and tiredness. Around 3 days ago started having some increased cough and congestion and worsening shortness of breath. He came into the hospital with generalized weakness and hypoxemia. Initially was found to be hypoxic with a pulse ox of in the mid 80s. The patienton oxygen at 2 L and improved. He is currently on 2 L of oxygen by nasal cannula with pulse ox of 96%. White second of 5.5. He does have lymphopenia with a lymphocyte count of 0.5. LDH is at 661, C-reactive protein is at 49, chest x-ray showing some patchy density in the lungs most on the left compared to the right. EKG showing no acute abnormalities. No nausea. No vomiting. No diarrhea. No change in sense of taste or smell. No altered mentation. He is comorbid conditions include hypertension and hyperlipidemia and he has undergone multiple surgeries on his back and his neck for degenerative disc disease. The patient is seen today 10/13/2020 in follow-up on the regular medical floor. He is awake and alert in no acute distress. Currently resting quite comfortably in bed. No worsening shortness of breath, cough or congestion. His chest discomfort has improved compared to yesterday. Currently maintaining good O2 saturations in the 90s on room air. He's afebrile. Receiving day 2 of Remdesivir. Remains on dexamethasone, Lovenox, vitamin supplements Objective - Vital Signs Vital signs: Vital Signs Temp 97.5 F L 10/13/20 14:59 Pulse 65 10/13/20 14:59 Resp 16 10/13/20 14:59 BP 115/65 10/13/20 14:59 Pulse Ox 94 L 10/13/20 14:59 Intake & Output 10/12/20 10/13/20 10/13/20 18:59 06:59 18:59 Intake Total 320 1100 380 Balance 320 1100 380 Weight 90.718 kg Intake: Oral 320 1100 380 Other: # Voids 1 1 1 - Exam GENERAL EXAM: Alert, active, very pleasant 64-year-old gentleman, on room air, comfortable in no apparent distress. HEAD: Normocephalic. EYES: Normal reaction of pupils, equal size. NOSE: Clear with pink turbinates. THROAT: No erythema or exudates. NECK: No masses, no JVD. CHEST: No chest wall deformity. LUNGS: Equal air entry with a lateral scattered rhonchi. CVS: S1 and S2 normal with no audible murmur, regular rhythm. ABDOMEN: No hepatosplenomegaly, normal bowel sounds, no guarding or rigidity. SPINE: No scoliosis or deformity SKIN: No rashes CENTRAL NERVOUS SYSTEM: No focal deficits, tone is normal in all 4 extremities. EXTREMITIES: There is no peripheral edema. No clubbing, no cyanosis. Peripheral pulses are intact. - Labs CBC & Chem 7: 10/12/20 06:49 10/12/20 06:49 Assessment and Plan Assessment: 1 acute Covid 19 related pneumonia with secondary shortness of breath and mild hypoxemia currently on today's election by nasal cannula 2 constitutions symptoms secondary to Covid 19 related infection 3 hypertension 4 hyperlipidemia 5 BPH 6 acid reflux Plan The patient was seen and evaluated by Dr. Moreno He is currently stable from the pulmonary standpoint Continue current treatment plan including Remdesivir, dexamethasone, Lovenox Repeat inflammatory markers in the a.m. Repeat chest x-ray in the a.m. We will continue to follow I, the cosigning physician, performed a history & physical examination of the patient. Lungs sounds with bilateral scattered rhonchi. Maintaining good O2 saturations in the 90s on room air. I discussed the assessment and plan of care with my nurse practitioner, Sylvia Edge. I attest to the above note as dictated by her.
[2020-10-13] MEDS: ATORVASTATIN 20 MG TAB PO SCH (20:05)
[2020-10-14] MEDS: ACETAMINOPHEN TAB 500 MG TAB PO SCH ×3 (00:47→11:49)
[2020-10-14] MEDS: BENZONATATE 100 MG CAP PO PRN (06:08)
[2020-10-14] MEDS: MULTIVITAMINS, THERA 1 EACH TAB PO SCH (07:08)
[2020-10-14] MEDS: ASCORBIC ACID 500 MG TAB PO SCH (07:08)
[2020-10-14] MEDS: CHOLECALCIFEROL 1,000 UNIT TAB PO SCH (07:08)
[2020-10-14] MEDS: dexAMETHasone 2 MG TAB PO SCH (07:09)
[2020-10-14] MEDS: TAMSULOSIN 0.4 MG CAP.ER.24H PO SCH (07:09)
[2020-10-14] MEDS: PANTOPRAZOLE 40 MG TABLET PO SCH (07:09)
[2020-10-14] MEDS: lisinopriL 20 MG TAB PO SCH (07:09)
[2020-10-14] MEDS: ENOXAPARIN 40 MG/0.4 ML SYRINGE SQ SCH (07:09)
[2020-10-14] MEDS: ZINC SULFATE 220 MG CAP PO SCH (07:10)
[2020-10-14 07:54] LABS: HCT 41.6 % (39.0-53.0); HGB 14.9 gm/dL (13.0-17.5); MCH 33.2 pg (25.0-35.0); MCHC 35.8 g/dL (31.0-37.0); MCV 92.8 fL (80.0-100.0); Mean Platelet Volume 7.7; Platelet Count 169 k/uL (150-450); RBC 4.48 m/uL (4.30-5.90); RDW 11.5 % (11.5-15.5); WBC 7.3 k/uL (3.8-10.6)
[2020-10-14] MEDS: ALBUTEROL HFA INHALER INHALATION SCH ×2 (08:24→11:45)
--- NOTE | 2020-10-14 08:44 | P.DS ---
Providers Date of admission: 10/12/20 08:10 Expected date of discharge: 10/14/20 Attending physician: Nirmala Jernigan Consults: 10/12/20 09:49 Consult Physician Routine Consulting Provider: Radha Moreno Consult Reason/Comments: covid Do you want consulting provider notified?: Yes Primary care physician: [facility] Course: HISTORY OF PRESENT ILLNESS This is a 64-year-old male one of Dr. Cardenas with a previous medical history for hypertension, hyperlipidemia, gastroesophageal reflux disease, degenerative disc disease of the lumbar spine and the cervical spine status post multiple surgical interventions. Patient states that he has had symptoms of covert for 11 days. His was diagnosed last week and had the same symptoms. They had most likely obtaining this from her [id number] that was positive for covert. He complains of severe headache, cough, white sputum production, loss of appetite. He states he has lost 5 pounds. He states he is not eating very much but thought he was drinking sufficiently although he is not urinating very much. He complains of generalized weakness. He denies having any diarrhea. Patient came into [facility] emergency center for evaluation. COVID-19 positive. Temperature 100.4, heart rate 84, blood pressure 125/71, pulse ox 96% on 2 L nasal cannula. WBC 5.5, hemoglobin 14.1. Lymphopenia at 0.5. Sodium 134, creatinine 0.79, potassium 4.1. Magnesium 1.8, liver function tests normal. LDH 661, C-reactive protein 49.4. Chest x-ray reveals patchy density of the lung bases suspicious for developing pneumonia. EKG is sinus rhythm with no acute ST changes. Patient started on vitamin C, vitamin D, zinc, Robitussin with codeine, dexamethasone 6 mg daily, Tessalon Perles, Lovenox. Consult with Dr. Moreno. 10/13: Patient has been seen by pulmonary medicine is started on Remdesivir 12/27. Patient states that his appetite is better today. He still continues to have some shortness of breath with activity and has some weakness but feeling better in general. He has been afebrile, heart rate 70, blood pressure 127/72, pulse ox 95% on 2 L cannula. Patient encouraged to increase fluids with possible discharge home tomorrow. 10/14: Patient denies any shortness of breath at rest but does have some shortness of breath with activity. No fever or chills. He has been eating well and drinking well. He is urinating. He has been off oxygen for 24 hours. He is currently on day #3/5 of Remdesivir. Patient feels comfortable going home today. Patient will be discharged home if cleared by pulmonary medicine. DISCHARGE DIAGNOSES 1. Covid 19 pneumonia. 2. Hypertension and hypertensive cardiovascular disease. 3. GERD. 4. Hyperlipidemia. 5. BPH. DISCHARGE PLAN home Impression and plan of care have been directed as dictated by the signing physician. María Torrse nurse practitioner acting as scribe for signing physician. Patient Condition at Discharge: Good Plan - Discharge Summary Discharge Rx Participant: No New Discharge Prescriptions: New Aspirin 325 mg PO DAILY #30 tab dexAMETHasone [Hexadrol] 6 mg PO DAILY #15 tab Zinc Sulfate [Orazinc] 220 mg PO DAILY cap Benzonatate [Tessalon Perles] 100 mg PO TID PRN #30 cap PRN Reason: Cough Acetaminophen Tab [Tylenol] 650 mg PO Q4HR PRN tab PRN Reason: Fever>101 Ascorbic Acid [Vitamin C] 1,000 mg PO DAILY tab Cholecalciferol [Vitamin D3 (25 Mcg = 1000 Iu)] 2,000 unit PO DAILY tab guaiFENesin-Coden 100-10MG/5ML [Robitussin AC] 10 ml PO Q4H PRN ml PRN Reason: Cough Continue Omeprazole 20 mg PO BID lisinopriL [Lisinopril] 20 mg PO DAILY Tamsulosin HCl 0.4 mg PO DAILY Multivitamin [Men's Multi-Vitamin] 1 tab PO DAILY Rosuvastatin [Crestor] 10 mg PO HS [place]-3 Fatty Acids/Fish Oil [Fish Oil 1,000 mg Softgel] 1 cap PO DAILY Discontinued Ibuprofen [Motrin] 600 mg PO Q8HR PRN PRN Reason: Pain Discharge Medication List Omeprazole 20 mg PO BID 08/19/15 [History] lisinopriL [Lisinopril] 20 mg PO DAILY 08/19/15 [History] Tamsulosin HCl 0.4 mg PO DAILY 09/23/16 [History] Multivitamin [Men's Multi-Vitamin] 1 tab PO DAILY 09/16/17 [History] [place] Fatty Acids/Fish Oil [Fish Oil 1,000 mg Softgel] 1 cap PO DAILY 10/12/20 [History] Rosuvastatin [Crestor] 10 mg PO HS 10/12/20 [History] Acetaminophen Tab [Tylenol] 650 mg PO Q4HR PRN tab 10/14/20 [Rx] Ascorbic Acid [Vitamin C] 1,000 mg PO DAILY tab 10/14/20 [Rx] Aspirin 325 mg PO DAILY #30 tab 10/14/20 [Rx] Benzonatate [Tessalon Perles] 100 mg PO TID PRN #30 cap 10/14/20 [Rx] Cholecalciferol [Vitamin D3 (25 Mcg = 1000 Iu)] 2,000 unit PO DAILY tab 10/14/20 [Rx] Zinc Sulfate [Orazinc] 220 mg PO DAILY cap 10/14/20 [Rx] dexAMETHasone [Hexadrol] 6 mg PO DAILY #15 tab 10/14/20 [Rx] guaiFENesin-Coden 100-10MG/5ML [Robitussin AC] 10 ml PO Q4H PRN ml 10/14/20 [Rx] Follow up Appointment(s)/Referral(s): Jose Guadalupe Cardenas MD [Primary Care Provider] - 10/24/20 1:00 pm (Virtual visit) Patient Instructions/Handouts: Hypoxia (GEN) Discharge Disposition: HOME SELF-CARE
[2020-10-14 10:45] VITALS: BP 120/70; PULSE 63; RESP 20; TEMP 98
[2020-10-14] MEDS: REMDESIVIR (EUA) 100 MG in SODIUM CHLORIDE 0.9% 250 ML IVPB SCH (11:49)
--- NOTE | 2020-10-14 11:54 | XR ---
EXAMINATION TYPE: XR chest 1V portable DATE OF EXAM: 10/14/2020 CLINICAL HISTORY: COVID pneumonia. TECHNIQUE: Portable frontal view of the chest. COMPARISON: 10/12/2020 chest radiograph FINDINGS: Subtle patchy airspace opacities of the bilateral lungs are mildly increased versus 2019. No pleural effusion. No pneumothorax. The cardiomediastinal silhouette is within normal limits for size. The osseous structures are intact. IMPRESSION: Mildly increased subtle patchy airspace opacities bilaterally versus 10/12/2020. Finding s are consistent with Covid 19 viral infection or other atypical pneumonia.
[2020-10-14 12:20] LABS: African American GFR (CKD) 93.1 (60.0-200.0); Albumin 4.3 g/dL (3.80-4.90); Albumin/Globulin Ratio 1.95 (1.60-3.17); Anion Gap 8.5 mmol/L (4.00-12.00); C Reactive Protein 4.2 mg/dL (0.0-0.8); Carbon Dioxide 27.5 mmol/L (21.6-31.8); Globulin 2.2 g/dL (1.6-3.3); Non-African American GFR(CKD) 80.3 (60.0-200.0); Potassium 4.1 mmol/L (3.5-5.5); Total Bilirubin 0.8 mg/dL (0.3-1.2); Total Protein 6.5 g/dL (6.2-8.2)
--- NOTE | 2020-10-14 15:08 | P.PN ---
Subjective Progress Note Date: 10/14/20 Principal diagnosis: COVID 19 pneumonitis 62-year-old male patient presents exposed to several family members with Covid 19 infection. The patient stated that his symptoms started approximately 10 days ago. He was having major weakness and fatigue and tiredness. Around 3 days ago started having some increased cough and congestion and worsening shortness of breath. He came into the hospital with generalized weakness and hypoxemia. Initially was found to be hypoxic with a pulse ox of in the mid 80s. The patienton oxygen at 2 L and improved. He is currently on 2 L of oxygen by nasal cannula with pulse ox of 96%. White second of 5.5. He does have lymphopenia with a lymphocyte count of 0.5. LDH is at 661, C-reactive protein is at 49, chest x-ray showing some patchy density in the lungs most on the left compared to the right. EKG showing no acute abnormalities. No nausea. No vomiting. No diarrhea. No change in sense of taste or smell. No altered mentation. He is comorbid conditions include hypertension and hyperlipidemia and he has undergone multiple surgeries on his back and his neck for degenerative disc disease. The patient is seen today 10/13/2020 in follow-up on the regular medical floor. He is awake and alert in no acute distress. Currently resting quite comfortably in bed. No worsening shortness of breath, cough or congestion. His chest discomfort has improved compared to yesterday. Currently maintaining good O2 saturations in the 90s on room air. He's afebrile. Receiving day 2 of Remdesivir. Remains on dexamethasone, Lovenox, vitamin supplements On 10/14/2020 patient seen in follow-up on medical surgical floor. He is calm and comfortable, currently on room air, pulse ox is 95%, feeling much better, states it just hurts a little bit with coughing, but no worsening dyspnea, vital signs have been stable, he is on his second dose of Remdesivir, he has been on oral Decadron, oxygenation has remained stable, his been afebrile today's labs have been reviewed showing improving laboratory markers, with LDH down to 269, and CRP down to 4.2. No acute events overnight, anticipate discharge home today Objective - Vital Signs Vital signs: Vital Signs Temp 98.0 F 10/14/20 10:00 Pulse 63 10/14/20 10:00 Resp 20 10/14/20 10:00 BP 120/70 10/14/20 10:00 Pulse Ox 95 10/14/20 10:00 Intake & Output 10/13/20 10/14/20 10/14/20 18:59 06:59 18:59 Intake Total 560 500 500 Balance 560 500 500 Intake: Oral 560 500 500 Other: # Voids 1 1 3 - Exam GENERAL EXAM: Alert, active, very pleasant, 64-year-old white male, on room air with a pulse ox of 95% comfortable in no apparent distress. HEAD: Normocephalic/atraumatic. EYES: Normal reaction of pupils, equal size. Conjunctiva pink, sclera white. NOSE: Clear with pink turbinates. THROAT: No erythema or exudates. NECK: No masses, no JVD, no thyroid enlargement, no adenopathy. CHEST: No chest wall deformity. Symmetrical expansion. LUNGS: Equal air entry with no crackles, wheeze, rhonchi or dullness. CVS: Regular rate and rhythm, normal S1 and S2, no gallops, no murmurs, no rubs ABDOMEN: Soft, nontender. No hepatosplenomegaly, normal bowel sounds, no guarding or rigidity. EXTREMITIES: No clubbing, no edema, no cyanosis, 2+ pulses and upper and lower extremities. MUSCULOSKELETAL: Muscle strength and tone normal. SPINE: No scoliosis or deformity SKIN: No rashes CENTRAL NERVOUS SYSTEM: Alert and oriented -3. No focal deficits, tone is normal in all 4 extremities. PSYCHIATRIC: Alert and oriented -3. Appropriate affect. Intact judgment and insight. - Labs CBC & Chem 7: 10/14/20 07:32 10/14/20 07:32 Labs: Abnormal Lab Results - Last 24 Hours (Table) 10/14/20 Range/Units 07:32 BUN/Creatinine Ratio 23.00 H (12.00-20.00) Ratio Lactate Dehydrogenase 269 H (120-246) U/L C-Reactive Protein 4.2 H (0.0-0.8) mg/dL Assessment and Plan Plan: Assessment: 1 acute Covid 19 related pneumonia with secondary shortness of breath and mild hypoxemia currently on today's election by nasal cannula 2 constitutions symptoms secondary to Covid 19 related infection 3 hypertension 4 hyperlipidemia 5 BPH 6 acid reflux Plan: Patient is on room air, maintaining stable O2 saturations, no acute events overnight, vital signs have been stable, no fever or chills, patient can continue on oral dexamethasone 6 mg daily for 5 more days, no need to continue with Remdesivir, we'll cut his treatment short in view of his clinical stability. From pulmonary perspective patient is cleared for discharge home today to continue to self isolate. I performed a history & physical examination of the patient and discussed their management with my nurse practitioner, Amy Dawson. I reviewed the nurse practitioner's note and agree with the documented findings and plan of care. Lung sounds are positive for clear breath sounds. The findings and the impression was discussed with the patient. I attest to the documentation by the nurse practitioner. Time with Patient: Less than 30
== END 2020-10-14 13:05 | disposition home or self-care (01) | DRG 177 ==
LOC: EC 05:56 → 6NMEDSUR 08:10 → 4SSUR 11:28
PROVIDERS: ADMIT Internal Medicine; ATTEND Internal Medicine
DX: U07.1 COVID-19 (principal); J12.89 Other viral pneumonia; D72.810 Lymphocytopenia; E78.5 Hyperlipidemia, unspecified; I11.9 Hypertensive heart disease without heart failure; K21.9 Gastro-esophageal reflux disease without esophagitis; N40.0 Benign prostatic hyperplasia without lower urinary tract symptoms; Z96.649 Presence of unspecified artificial hip joint; R09.02 Hypoxemia; M19.90 Unspecified osteoarthritis, unspecified site; Z79.1 Long term (current) use of non-steroidal anti-inflammatories (NSAID); Z79.899 Other long term (current) drug therapy; Z79.82 Long term (current) use of aspirin; Z80.3 Family history of malignant neoplasm of breast; Z80.8 Family history of malignant neoplasm of other organs or systems; Z82.49 Family history of ischemic heart disease and other diseases of the circulatory system; Z87.891 Personal history of nicotine dependence; Z91.09 Other allergy status, other than to drugs and biological substances; Z90.89 Acquired absence of other organs; Z98.1 Arthrodesis status
CPT/HCPCS: 36415; 71045; 71046; 80053; 82728; 83605; 83615; 83735; 83880; 84484; 85025; 85027; 85379; 85610; 85730; 86140; 87635; 93005; 94640; 96372; 99285

== ENCOUNTER → 2021-12-11 | Outpatient (CLI) | payer OTHER ==
--- NOTE | 2021-12-11 12:42 | MR ---
EXAMINATION TYPE: MR knee LT wo con DATE OF EXAM: 12/11/2021 COMPARISON: Vein film 11/25/2021 HISTORY: M25.562 Left knee pain TECHNIQUE: Multiplanar, multisequence imaging of the left knee is performed without IV contrast. FINDINGS: MEDIAL MENISCUS: Posterior horn of the medial meniscus shows some linear increased signal which is th ought to communicate with the articular surface, sagittal image #26 series 401, there is a somewhat f rayed and irregular appearance of the posterior horn of the medial meniscus at this level LATERAL MENISCUS: Anterior and posterior horns are intact without tear. CRUCIATE LIGAMENTS: The anterior and posterior cruciate ligaments are intact and unremarkable. COLLATERAL LIGAMENTS: The medial collateral ligament and lateral collateral ligament complex are inta ct and unremarkable. EXTENSOR MECHANISM: Question some increased interstitial changes at the level of the insertion of the quadriceps tendon at the patella, sagittal image 19 of series 4 1, axial image #31 series 701, corre late for possible insertional tendinosis. EFFUSION: Small suprapatellar joint effusion noted POPLITEAL CYST: No popliteal/rivera cyst. TRICOMPARTMENT SPACES: Mild joint space loss present in the medial compartment CARTILAGE: Grade 2 to grade III chondromalacia present at the posterior patella, axial image 22, medi al femoral condyle coronal image 24, 25 and sagittal image #24 BONE MARROW SIGNAL: No focal abnormal marrow signal is appreciated. OTHER: Some fluid signal is present at the posterior aspect of the distal femur lateral to the origi n of the gastrocnemius medial belly IMPRESSION: Osteoarthritis, possible degenerative tear the posterior horn the medial meniscus. Correlate for poss ible insertional tendinosis of the quadriceps tendon
== END | disposition home or self-care (01) ==
LOC: RADMRIMAIN 08:46
PROVIDERS: ATTEND Orthopaedic Surgery
DX: M17.12 Unilateral primary osteoarthritis, left knee (principal)

== ENCOUNTER → 2022-01-13 | Outpatient (CLI) | payer OTHER ==
[2022-01-13 14:55] LABS: Basophils # (A) 0.02 X 10*3/uL (0.00-0.10); Basophils % (A) 0.3 %; Eosinophils % (A) 1.5 %; HCT 42.1 % (39.6-50.0); HGB 14.2 g/dL (13.0-17.0); Immature Grans, Automated 0.1 %; Lymphocytes # (A) 1.89 X 10*3/uL (0.90-5.00); Lymphocytes % (A) 27.6 %; MCH 31.3 pg (27.0-32.0); MCHC 33.7 g/dL (32.0-37.0); MCV 92.9 fL (80.0-97.0); Mean Platelet Volume 11.3 fL (9.5-12.2); Monocytes # (A) 0.42 X 10*3/uL (0.20-1.00); Monocytes % (A) 6.1 %; NRBC Per 100 WBC 0 /100 WBCS (0.0-0.0); Neutrophils % (A) 64.4 %; Platelet Count 152 X 10*3/uL (140-440); RBC 4.53 X 10*6/uL (4.40-5.60); RDW 12.4 % (11.5-14.5); WBC 6.84 X 10*3/uL (4.50-10.00)
[2022-01-13 15:12] LABS: Anion Gap 13.8 mmol/L (10.00-18.00); Carbon Dioxide 22.7 mmol/L (20.0-27.5); Potassium 4.6 mmol/L (3.5-5.5)
== END | disposition home or self-care (01) ==
LOC: LABPAT 08:32
PROVIDERS: ATTEND Orthopaedic Surgery
DX: Z01.818 Encounter for other preprocedural examination (principal); M23.92 Unspecified internal derangement of left knee
CPT/HCPCS: 36415; 80051; 85025; 93005

== ENCOUNTER → 2022-01-22 | Day surgery (SDC) | payer OTHER ==
[2022-01-20 15:45] VITALS: BMI 27.7
--- NOTE | 2022-01-21 20:40 | HP ---
HISTORY AND PHYSICAL DATE OF SURGERY: 01/22/2022 Ward Prajapati is a 66-year-old gentleman seen with progressive left knee pain. We discussed options for treatment. He elected to proceed with left knee arthroscopy. Consent was obtained. PAST MEDICAL HISTORY: Hypertension, hyperlipidemia. PAST SURGICAL HISTORY: Lumbar spine surgery, total hip arthroplasty. DAILY MEDICATIONS: Lisinopril, atorvastatin. ALLERGIES: NONE. SOCIAL HISTORY: He denies tobacco use. PHYSICAL EVALUATION OF THE LEFT KNEE: His range of motion is zero to 100 degrees. Mild effusion. Tenderness, medial joint line. Positive medial Mojgan's. Ligaments stable. Hip rotation without pain. Distal neurovascular exam intact. Left knee radiographs revealed mild osteoarthritis. MRI left knee revealed medial meniscal tear and effusion. IMPRESSION: 1. Internal derangement of left knee with medial meniscal tear. 2. Hypertension. 3. Hyperlipidemia. PLAN: Left knee arthroscopy with partial meniscectomy and debridement. MMODL / IJN: [id number] /
[~2022-01-22] MED LIST: BUPIVACAINE (PF) 0.25% 30 ML VIAL SQ ONE; DEXAMETHASONE SOD PHOSPHATE 4 MG/ML 1 ML VIAL IV ONE; LACTATED RINGERS 1,000 ML IV ONE; LACTATED RINGERS 1,000 ML IV SCH; LIDOCAINE 1% (10MG/ML) FOR IV START INTRADERMA PRN; MIDAZOLAM 2 MG/2 ML VIAL IV PRN; MIDAZOLAM 2 MG/2 ML VIAL ONE; ONDANSETRON 4 MG/2 ML VIAL IVP ONE; PROPOFOL 10 MG/ML 20 ML VIAL IV ONE; fentaNYL (PF) 50 MCG/ML 2 ML AMP ONE
[2022-01-22 12:31] VITALS: RESP 16; TEMP 96.9
--- NOTE | 2022-01-22 12:31 | P.OP ---
Date of Procedure: 01/22/22 Preoperative Diagnosis: Internal derangement left knee Postoperative Diagnosis: 1. Complex tear posterior horn medial meniscus left knee 2. Grade 2/3 chondromalacia medial femoral condyle left knee 3. Reactive synovitis medial, lateral and suprapatellar compartments left knee Procedure(s) Performed: 1. Arthroscopic partial medial meniscectomy left knee 2. Arthroscopic chondroplasty medial femoral condyle left knee 3. Arthroscopic partial synovectomy medial, lateral and suprapatellar compartments left knee Anesthesia: KWAMEA, local Surgeon: Harman Boyle Estimated Blood Loss (ml): 6 Pathology: none sent Condition: stable Disposition: PACU Indications for Procedure: 66-year-old gentleman seen with progressive left knee pain. After having treatment options discussed, he elected to proceed with arthroscopy. Operative Findings: See description of procedure Description of Procedure: Patient was taken to the operative suite. Patient underwent a general anesthetic by the department of anesthesia. Patient was given preoperative antibiotics. The left lower extremity was placed in a well-padded arthroscopic leg palacios. The left leg was prepped and draped in the normal sterile orthopedic fashion. A lateral parapatellar and suprapatellar incision was made. Trochars were inserted. Arthroscopy was initiated. Suprapatellar pouch revealed diffuse thick reactive synovitis. The patellofemoral joint appeared to articulate congruently. There was grade 1 chondromalacia of the patella with no osteochondral tears present. The scope was guided into the medial gutter. No loose bodies or plica were identified. The scope was then guided into the medial compartment. A medial parapatellar incision was made. Trocar inserted followed by probe. There was a complex tear involving the posterior horn medial meniscus which did extend slightly into the midbody area. There were grade 2/3 chondromalacia changes of the medial femoral condyle with some osteochondral flap tears. There was thick reactive synovitis anteriorly. I performed a partial medial meniscectomy getting down to stable meniscal tissue. I performed a chondroplasty of the medial femoral condyle getting down to stable osteochondral tissue. I performed a partial synovectomy compressing the thick reactive synovitis anteriorly. The residual meniscus was stable. The residual osteochondral surface was stable. There was good decompression of the synovitis. Scope and probe were then guided into the intercondylar notch. Cruciates were identified, probed and found to be stable. The scope and probe were then guided into lateral compartment. Lateral meniscus was probed and was found to be stable. There was no significant chondromalacia present involving the lateral compartment. There was some thick reactive synovitis anteriorly. I introduced a motorized shaver and performed a partial synovectomy. The shaver was removed. There was good decompression of the synovitis. The scope was in guided back into the suprapatellar compartment. I introduced a motorized shaver into the suprapatellar compartment. I debrided some piecemeal fragments of meniscus I encountered. I performed a partial synovectomy. The shaver was removed. There was good decompression of the synovitis. I took one more look on the entire knee, no residual debris. Instruments were now removed from the joint. The joint was infiltrated with .25% Marcaine. Steri-Strips were applied to the portal sites. Sterile dressings were applied. The patient was placed into a VITOR hose. No tourniquet was utilized. The patient was awakened, transferred to a bed and taken to recovery stable satisfactory condition.
[2022-01-22] MEDS: HYDROmorphone 0.5 MG/0.5 ML SYRINGE IVP PRN ×2 (12:35→12:50)
[2022-01-22 14:16] VITALS: BP 131/72; PULSE 79
== END | disposition home or self-care (01) ==
LOC: OR 10:04
PROVIDERS: ATTEND Orthopaedic Surgery
DX: M23.204 Derangement of unspecified medial meniscus due to old tear or injury, left knee (principal); M94.262 Chondromalacia, left knee; M65.862 Other synovitis and tenosynovitis, left lower leg; K21.9 Gastro-esophageal reflux disease without esophagitis; I10 Essential (primary) hypertension; Z96.649 Presence of unspecified artificial hip joint; E78.5 Hyperlipidemia, unspecified; Z98.890 Other specified postprocedural states; Z79.899 Other long term (current) drug therapy
CPT/HCPCS: 29881; 29876; J2250; J1100; J0690; J2405; J3010; J2704; J1170

== ENCOUNTER → 2024-12-09 | Outpatient (CLI) | payer MEDICARE, BC ==
--- NOTE | 2024-12-11 07:50 | MR ---
EXAMINATION TYPE: MR knee LT wo con DATE OF EXAM: 12/09/2024 COMPARISON: Prior left knee MRI December 11, 2021. Outside left knee x-ray December 05, 2024 HISTORY: Left knee pain and swelling for 3 months after bending injury, history of surgery TECHNIQUE: Multiplanar, multisequence images of the knee is performed without IV contrast. FINDINGS: MEDIAL MENISCUS: Medial extrusion of medial meniscus redemonstrated. Persistent cleft or absence of t he central body and portions of the posterior horn with oblique increased signal extending to the inf erior articular surface redemonstrated similar to prior. LATERAL MENISCUS: Discoid meniscus redemonstrated. Anterior and posterior horns are intact without te ar. CRUCIATE LIGAMENTS: The anterior and posterior cruciate ligaments are intact and unremarkable. COLLATERAL LIGAMENTS: The medial collateral ligament and lateral collateral ligament complex are inta ct and unremarkable. EXTENSOR MECHANISM: Visualized quadriceps and patellar tendons are intact. EFFUSION: No significant suprapatellar joint effusion. POPLITEAL CYST: No popliteal/rivera cyst. TRICOMPARTMENT SPACES: Mild to moderate tricompartment joint space loss and spurring redemonstrated. CARTILAGE: Tricompartment articular cartilage fairly well preserved. BONE MARROW SIGNAL: No focal abnormal marrow signal is appreciated. OTHER: No additional significant abnormality is appreciated. IMPRESSION: 1. Suspect postsurgical change and/or persistent tear of the medial meniscus similar to prior. 2. Mild to moderate tricompartment degenerative changes are present as detailed above similar to [facility], Workstation: [id number], 12/11/2024 7:48 AM
== END | disposition home or self-care (01) ==
LOC: RADMRIMAIN 10:13
PROVIDERS: ATTEND Orthopaedic Surgery
DX: M17.12 Unilateral primary osteoarthritis, left knee (principal); M25.562 Pain in left knee; X50.1XXA Overexertion from prolonged static or awkward postures, initial encounter

== ENCOUNTER → 2024-12-22 | Outpatient (CLI) | payer MEDICARE, BC ==
[2024-12-22 14:55] LABS: HCT 42.2 % (39.6-50.0); HGB 14.7 g/dL (13.0-17.0); MCHC 34.8 g/dL (32.0-37.0); MCV 91.9 FL (80.0-97.0); Mean Platelet Volume 11.8 FL (9.5-12.2); NRBC Per 100 WBC 0 X 10*3/uL (0.00-0.01); Platelet Count 152 X 10*3/uL (140-440); RBC 4.59 X 10*6/uL (4.40-5.60); RDW 12.7 % (11.5-14.5); WBC 5.11 X 10*3/uL (4.50-10.00)
[2024-12-22 14:56] LABS: Basophils # (A) 0.02 X 10*3/uL (0.00-0.10); Basophils % (A) 0.4 %; Eosinophils # (A) 0.12 X 10*3/uL (0.04-0.35); Eosinophils % (A) 2.3 %; Lymphocytes # (A) 1.63 X 10*3/uL (0.90-5.00); Lymphocytes % (A) 31.9 %; Monocytes % (A) 9.8 %; Neutrophils # (A) 2.82 X 10*3/uL (1.80-7.70); Neutrophils % (A) 55.2 %
[2024-12-22 15:05] LABS: Anion Gap 11.5 mmol/L (4.00-12.00); Carbon Dioxide 21.5 mmol/L (21.6-31.8); Potassium 4.4 mmol/L (3.5-5.5)
== END | disposition home or self-care (01) ==
LOC: LABPAT 08:52
PROVIDERS: ATTEND Orthopaedic Surgery
DX: Z01.818 Encounter for other preprocedural examination (principal); M23.92 Unspecified internal derangement of left knee
CPT/HCPCS: 80051; 85025; 93005

== ENCOUNTER 2025-01-18 08:43 | Day surgery (SDC) | payer MEDICARE, BC ==
[2025-01-17 10:05] VITALS: BMI 28.3
--- NOTE | 2025-01-17 20:35 | HP ---
HISTORY AND PHYSICAL DATE OF SURGERY: 01/18/2025. HISTORY OF PRESENT ILLNESS: Ward Prajapati is a 69-year-old gentleman, seen with progressive left knee pain. We discussed options regarding treatment. He elected to proceed with left knee arthroscopy. Consent was obtained. PAST MEDICAL HISTORY: Hypertension, hyperlipidemia. SURGICAL HISTORY: Multiple back surgeries, total hip arthroplasty, shoulder arthroscopy. DAILY MEDICATIONS: 1. Omeprazole. 2. Amlodipine. 3. Finasteride. 4. Diclofenac. ALLERGIES: None. SOCIAL HISTORY: Denies current tobacco use. PHYSICAL EVALUATION OF THE LEFT KNEE: His range of motion is 0 to 120 degrees. Mild effusion. Tenderness in the medial joint line. Positive medial Mojgan's. Ligaments stable. Hip rotation is without pain. Distal neurovascular exam is intact. Left knee radiographs revealed mild medial compartment osteoarthritis. MRI of the left knee revealed medial meniscal tear with moderate osteoarthritic changes. IMPRESSION: 1. Internal derangement of the left knee with medial meniscal tear. 2. Hypertension. PLAN: Left knee arthroscopy with partial medial meniscectomy and debridement. MMODL / IJN: [id number] /
[~2025-01-18 08:43] MED LIST changes: -BUPIVACAINE (PF) 0.25% 30 ML VIAL SQ ONE; -DEXAMETHASONE SOD PHOSPHATE 4 MG/ML 1 ML VIAL IV ONE; -LACTATED RINGERS 1,000 ML IV ONE; -MIDAZOLAM 2 MG/2 ML VIAL ONE; -ONDANSETRON 4 MG/2 ML VIAL IVP ONE; -PROPOFOL 10 MG/ML 20 ML VIAL IV ONE; +fentaNYL (PF) 50 MCG/ML 2 ML AMP IVP PRN; -fentaNYL (PF) 50 MCG/ML 2 ML AMP ONE
[2025-01-18] MEDS: IV FLUID CONTINUATION 1,000 ML IV ONE ×2 (09:31→09:48)
[2025-01-18] MEDS: DEXAMETHASONE SOD PHOSPHATE 4 MG/ML 1 ML VIAL IV ONE (09:36)
[2025-01-18] MEDS: ONDANSETRON 4 MG/2 ML VIAL IVP ONE (09:36)
[2025-01-18] MEDS ORDERED: GLYCOPYRROLATE 0.2 MG/ML 2 ML VIAL ONE (09:45)
[2025-01-18] MEDS ORDERED: PROPOFOL 10 MG/ML 20 ML VIAL IV ONE (09:45)
[2025-01-18] MEDS ORDERED: ePHEDrine 50 MG/ML 1 ML VIAL ONE (09:45)
[2025-01-18] MEDS ORDERED: MIDAZOLAM 2 MG/2 ML VIAL ONE (09:45)
[2025-01-18] MEDS ORDERED: fentaNYL (PF) 50 MCG/ML 2 ML AMP ONE (09:45)
[2025-01-18] MEDS ORDERED: WATER FOR INJECTION, STERILE 10 ML VIAL IV ONE (09:45)
[2025-01-18] MEDS: BUPIVACAINE (PF) 0.25% 30 ML VIAL SQ ONE (10:09)
[2025-01-18] MEDS: HYDROmorphone 0.5 MG/0.5 ML SYRINGE IVP PRN (10:38)
--- NOTE | 2025-01-18 10:38 | P.OP ---
Date of Procedure: 01/18/25 Preoperative Diagnosis: Internal derangement left knee Postoperative Diagnosis: 1. Tear medial and lateral meniscus left knee 2. 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 Reactive synovitis medial, lateral and suprapatellar compartments left knee Procedure(s) Performed: 1. Arthroscopic partial medial and lateral meniscectomy left knee 2. Arthroscopic microfracture medial tibial plateau left knee 3. Arthroscopic partial synovectomy medial, lateral and suprapatellar compartments left knee Anesthesia: KWAMEA, local Surgeon: Harman Boyle Estimated Blood Loss (ml): 5 Pathology: none sent Condition: stable Disposition: PACU Indications for Procedure: 69-year-old patient seen with progressive left knee pain. After having treatment options discussed, he elected to proceed with arthroscopy. Operative Findings: See description of procedure Description of Procedure: Patient was taken to the operative suite. Patient underwent a general anesthetic by the department of anesthesia. Patient was given preoperative antibiotics. The left lower extremity was placed in a well-padded arthroscopic leg palacios. The left leg was prepped and draped in the normal sterile orthopedic fashion. A lateral parapatellar and suprapatellar incision was made. Trochars were inserted. Arthroscopy was initiated. Suprapatellar pouch revealed diffuse thick reactive synovitis. The patellofemoral joint appeared to articulate congruently. There was grade I chondromalacia patella without tears. The scope was guided into the medial gutter. No loose bodies or plica were identified. The scope was then guided into the medial compartment. A medial parapatellar incision was made. Trocar inserted followed by probe. There was a complex tear involving the posterior horn of the medial meniscus extending to the mid body area. There was grade II chondromalacia changes along the medial femoral condyle approaching grade 3. There was some osteochondral flap tears present. There was an area of grade IV chondromalacia medial tibial plateau measuring just under centimeter. There was thick reactive synovitis anteriorly. I performed a partial medial meniscectomy getting down to stable meniscal tissue. I performed a chondroplasty medial femoral condyle getting down to stable osteochondral tissue. I performed a partial synovectomy decompressing the thick reactive synovitis anteriorly. I now introduced a 60 degree microfracture awl and I performed a microfracture to that area of exposed bone medial tibial plateau penetrating the bone with resultant bleeding at the microfracture site. The residual meniscus was probed and was found to be stable. The residual osteochondral surface appeared stable. There was good decompression of the synovitis. Scope and probe were then guided into the intercondylar notch. Cruciates were identified, probed and found to be stable. The scope and probe were then guided into lateral compartment. There was a radial tear mid bilateral meniscus. There were grade I chondromalacia changes along the lateral tibial plateau without tears. There was some thick reactive synovitis anteriorly. I performed a partial lateral meniscectomy getting out of stable meniscal tissue. I performed a partial synovectomy decompressing the thick reactive synovitis. The residual meniscus was probed and was found to be stable. There was good decompression of the synovitis. The scope was in guided back into the suprapatellar compartment. I reduced a motorized shaver into the suprapatellar compartment. I debrided some piecemeal fragments of meniscus that I encountered. I performed a partial synovectomy. The shaver was now removed. There was good decompression of the synovitis. I now took 1 more look around the entire knee, no residual debris. Instruments were now removed from the joint. The joint was infiltrated with .25% Marcaine. Steri-Strips were applied to the portal sites. Sterile dressings were applied. The patient was placed into a VITOR hose. No tourniquet was utilized. The patient was awakened, transferred to a bed and taken to recovery stable satisfactory condition.
[2025-01-18 10:43] VITALS: TEMP 97.3
[2025-01-18 11:47] VITALS: BP 117/63; PULSE 66; RESP 14
== END 2025-01-18 12:01 | disposition home or self-care (01) ==
LOC: OR 08:43
PROVIDERS: ATTEND Orthopaedic Surgery
DX: S83.242A Other tear of medial meniscus, current injury, left knee, initial encounter (principal); S83.282A Other tear of lateral meniscus, current injury, left knee, initial encounter; M94.262 Chondromalacia, left knee; M65.862 Other synovitis and tenosynovitis, left lower leg; M17.12 Unilateral primary osteoarthritis, left knee; K21.9 Gastro-esophageal reflux disease without esophagitis; I10 Essential (primary) hypertension; E78.5 Hyperlipidemia, unspecified; Z89.231 Acquired absence of right shoulder; Z79.899 Other long term (current) drug therapy
CPT/HCPCS: 29880; 29879; 29876; J2250; J1100; J2405; J3010; J2704; J1171; J0665; J1596

== ENCOUNTER → 2025-02-13 | Outpatient (CLI) | payer MEDICARE, BC ==
--- NOTE | 2025-02-13 14:35 | MR ---
EXAMINATION TYPE: MR shoulder LT wo con DATE OF EXAM: 02/13/2025 1:09 PM COMPARISON: Outside left shoulder x-ray February 13, 2025 CLINICAL INDICATION: Male, 69 years old with history of M25.512 PAIN IN LEFT SHOULDER, Chronic left s houlder pain, decreased ROM. IV Contrast: cc (None if empty) TECHNIQUE: Multiplanar, multisequence imaging of the left shoulder is performed without contrast. FINDINGS: Rotator Cuff: Increased signal in the distal infraspinatus tendon with surrounding fluid. More promin ent increased signal in the supraspinatus tendon with surrounding fluid. Heterogeneous subscapularis tendon with surrounding fluid. Rotator cuff muscle bulk is preserved. Acromioclavicular Joint: Moderate to severe narrowing greatest posteriorly. Moderate spurring. Modera te to severe capsular hypertrophy. Loss of underlying fat plane Glenohumeral Joint: Small to moderate size joint effusion. Tiny spurring inferior medial humeral head . Narrowing is present. Labrum: The labrum appears grossly intact given limitation of non-arthrogram study. Biceps Tendon: The long head of biceps is in normal location within bicipital groove. Bone marrow signal: No focal abnormal marrow signal is appreciated. Other: No additional significant abnormality is appreciated. IMPRESSION: 1. Fairly severe AC joint arthropathy with underlying impingement. Correlate clinically. 2. Mild tendinosis of infraspinatus tendons. More significant tendinosis of the supraspinatus and sub scapularis tendons. [facility], Workstation: [id number], 02/13/2025 2:33 PM
== END | disposition home or self-care (01) ==
LOC: RADMRIMAIN 12:29
PROVIDERS: ATTEND Orthopaedic Surgery
DX: M19.012 Primary osteoarthritis, left shoulder (principal); M67.814 Other specified disorders of tendon, left shoulder; M25.812 Other specified joint disorders, left shoulder

== ENCOUNTER → 2025-02-27 | Outpatient (CLI) | payer MEDICARE, BC ==
[2025-02-27 15:18] LABS: Basophils # (A) 0.03 X 10*3/uL (0.00-0.10); Basophils % (A) 0.6 %; Eosinophils # (A) 0.07 X 10*3/uL (0.04-0.35); Eosinophils % (A) 1.4 %; HGB 14.4 g/dL (13.0-17.0); Lymphocytes % (A) 30.5 %; MCH 31.4 pg (27.0-32.0); MCHC 33.5 g/dL (32.0-37.0); MCV 93.9 FL (80.0-97.0); Mean Platelet Volume 11.6 FL (9.5-12.2); Monocytes # (A) 0.43 X 10*3/uL (0.20-1.00); Monocytes % (A) 8.8 %; NRBC Per 100 WBC 0 X 10*3/uL (0.00-0.01); Neutrophils # (A) 2.86 X 10*3/uL (1.80-7.70); Neutrophils % (A) 58.3 %; Platelet Count 140 X 10*3/uL (140-440); RBC 4.58 X 10*6/uL (4.40-5.60); RDW 12.6 % (11.5-14.5); WBC 4.91 X 10*3/uL (4.50-10.00)
[2025-02-27 15:28] LABS: Anion Gap 12.2 mmol/L (4.00-12.00); Carbon Dioxide 23.8 mmol/L (21.6-31.8); Potassium 4.2 mmol/L (3.5-5.5)
== END | disposition home or self-care (01) ==
LOC: LABPAT 09:45
PROVIDERS: ATTEND Orthopaedic Surgery
DX: Z01.818 Encounter for other preprocedural examination (principal); M25.512 Pain in left shoulder; R94.31 Abnormal electrocardiogram [ECG] [EKG]
CPT/HCPCS: 80051; 85025; 93005

== ENCOUNTER 2025-03-21 07:44 | Day surgery (SDC) | payer MEDICARE, BC ==
--- NOTE | 2025-03-21 00:06 | HP ---
HISTORY AND PHYSICAL DATE OF SURGERY: 03/21/2025. HISTORY OF PRESENT ILLNESS: Ward Prajapati is a 69-year-old gentleman seen with progressive left shoulder pain. We discussed options regarding treatment. He elected to proceed with left shoulder arthroscopy. Consent was obtained. PAST MEDICAL HISTORY: Hypertension. PAST SURGICAL HISTORY: Total hip arthroplasty, back surgery, shoulder arthroscopy. DAILY MEDICATIONS: 1. Omeprazole. 2. Amlodipine. ALLERGIES: None. SOCIAL HISTORY: Denies current tobacco use. PHYSICAL EVALUATION OF THE LEFT SHOULDER: Flexion is 140 degrees, abduction is 110 degrees. External rotation is 50 degrees with pain and weakness. Tenderness along the anterolateral acromion and rotator cuff insertion site along with the acromioclavicular joint. Impingement is 90. Cross body adduction sign is positive. Drop-arm sign is positive. Distal neurovascular exam is intact. IMAGING STUDIES: Left shoulder radiographs revealed a type 2 acromion, acromioclavicular joint osteoarthritis and cystic changes of the tuberosity. MRI of left shoulder, severe osteoarthritis of the acromioclavicular joint, impingement, rotator cuff tendinitis. IMPRESSION: 1. Left shoulder impingement with partial rotator cuff tear. 2. Left shoulder acromioclavicular joint osteoarthritis. 3. Left shoulder bicipital tendinitis. PLAN: Left shoulder arthroscopy with subacromial decompression, arthroscopic rotator cuff repair, Mikayla procedure, possible biceps tenodesis and debridement. MMODL / IJN: [id number] /
[~2025-03-21 07:44] MED LIST changes: +HYDROmorphone 0.5 MG/0.5 ML SYRINGE IVP PRN; -LACTATED RINGERS 1,000 ML IV SCH; -LIDOCAINE 1% (10MG/ML) FOR IV START INTRADERMA PRN; -MIDAZOLAM 2 MG/2 ML VIAL IV PRN; +fentaNYL (PF) 50 MCG/ML 2 ML AMP IV PRN; -fentaNYL (PF) 50 MCG/ML 2 ML AMP IVP PRN
[2025-03-21] MEDS: IV FLUID CONTINUATION 1,000 ML IV ONE (08:25)
[2025-03-21] MEDS: LIDOCAINE 1% (10MG/ML) FOR IV START INTRADERMA STA (08:25)
[2025-03-21] MEDS: LACTATED RINGERS 1,000 ML IV SCH (08:25)
[2025-03-21] MEDS: ONDANSETRON 4 MG/2 ML VIAL IVP ONE (08:40)
[2025-03-21] MEDS: DEXAMETHASONE SOD PHOSPHATE 4 MG/ML 1 ML VIAL IV ONE (08:40)
[2025-03-21] MEDS: MIDAZOLAM 2 MG/2 ML VIAL IV ONE (08:46)
[2025-03-21] MEDS ORDERED: DEXAMETHASONE SOD PHOSPHATE 4 MG/ML 1 ML VIAL ONE (09:38)
[2025-03-21] MEDS ORDERED: SUCCINYLCHOLINE CHLORIDE 200 MG/10 ML VIAL IV ONE (09:38)
[2025-03-21] MEDS ORDERED: PROPOFOL 10 MG/ML 20 ML VIAL IV ONE (09:38)
[2025-03-21] MEDS ORDERED: fentaNYL (PF) 50 MCG/ML 2 ML AMP ONE (09:38)
[2025-03-21] MEDS ORDERED: LIDOCAINE 1% INJ 10MG/ML (20 ML MDV) ONE (09:38)
[2025-03-21] MEDS ORDERED: GLYCOPYRROLATE 0.2 MG/ML 2 ML VIAL ONE (09:38)
[2025-03-21] MEDS ORDERED: ROPIVACAINE 5 MG/ML 30 ML VIAL ONE (09:38)
[2025-03-21] MEDS: ceFAZolin 2 GM in DEXTROSE 5% IN WATER 50 ML IVPB PRN (09:43)
--- NOTE | 2025-03-21 10:24 | P.ANPRN ---
Procedure Note - Anesthesia - Nerve Block Performed Left Interscalene Single Time Out Performed: Yes ([id number]) Date of Procedure: 03/21/25 Procedure Start Time: 08:46 Procedure Stop Time: 08:52 Location of Patient: PreOp Indication: Acute Post-Operative Pain, Requested by Surgeon Sedation Type: Sedate with meaningful contact maintained Preparation: Sterile Prep Position: Sitting Catheter: None Needle Types: Pajunk Needle Gauge: Other (see comment) (22G) Ultrasound used to visualize needle placement: Yes Ultrasound used to observe medication spread: Yes Injectate: 0.5% Ropivacaine (see comment for volume) (21 mL of block solution containing 20 mL of 0.5% ropivacaine mixed with 4 mg of dexamethasone) Blood Aspirated: No Pain Paresthesia on Injection Noted: No Resistance on Injection: Normal Image Stored and Saved: Yes Events: Uneventful and Well Tolerated
--- NOTE | 2025-03-21 11:17 | P.OP ---
Date of Procedure: 03/21/25 Preoperative Diagnosis: Left shoulder impingement Postoperative Diagnosis: 1. Left shoulder rotator cuff tear 2. Left shoulder impingement 3. Left shoulder partial long head biceps tendon tear 4. Left shoulder acromioclavicular joint osteoarthritis 5. Left shoulder superficial labral tear Procedure(s) Performed: 1. Left shoulder arthroscopic rotator cuff repair 2. Left shoulder arthroscopic subacromial decompression 3. Left shoulder arthroscopic biceps tenodesis 4. Left shoulder arthroscopic Mikayla procedure 5. Left shoulder arthroscopic debridement labral tear Implants: 2Arthrex 4.75 swivel lock anchors Anesthesia: GETA, regional (Interscalene block) Surgeon: Harman Boyle Sand Filler #1: Jason Hernandez Estimated Blood Loss (ml): 8 Pathology: none sent Condition: stable Disposition: PACU Indications for Procedure: 69-year-old gentleman seen with progressive left shoulder pain. After having treatment options discussed, he elected to proceed with arthroscopy. Operative Findings: See description of procedure Description of Procedure: Patient underwent an interscalene block by department of anesthesia. The patient was then taken to the operative suite. The patient underwent a general anesthetic by the department of anesthesia. The patient was placed into a lateral position and secured. There was appropriate padding of the bony promin ence. Left shoulder was then prepped and draped in normal sterile orthopedic fashion. We placed the extremity in 10 pounds of longitudinal traction. A posterior incision was now made for a posterior working portal site. The trocar and cannula were inserted into the glenohumeral joint. Arthroscopy was initiated. Spinal needle was now inserted anteriorly, to ascertain the anterior working portal site. An incision was now made in that area, a trocar was inserted followed by a probe. There was superficial tearing of the superior labrum. There were grade I chondromalacia changes without evidence for any tears. There was partial tearing long head biceps tendon. I reduced a motorized shaver and debrided out the superficial labral tears. I now passed a cannula through the anterior portal site. I passed a loop and tack stitch to the biceps tendon and release it from the superior labral anchor. With the assistance of Johnie ANNA I punched a hole at the interval for insertion of an anchor. I passed the suture limb through the eyelet of an Arthrex 4.75 swivel lock anchor. I placed the eyelet into the prepunched pole. I held in position while Johnie ANNA tensioned the suture and deployed the anchor with good fixation noted. We had a stable appearing biceps tenodesis. The residual labrum was probed and was found to be stable. Instruments were now removed from the glenohumeral joint. Utilizing the posterior working portal site, the trocar and cannula were inserted into the subacromial space. Arthroscopy initiated. I made an incision 2 fingerbreadths lateral to the acromion. I introduced my trocar followed by my ArthroCare ablator. I now began ablating thick subacromial bursal tissue, which exposed the undersurface of the anterior acromion. There was diminished s ubacromial space. There was a very prominent anterior acromion. A motorized bur was introduced and a subacromial decompression was performed. I also excised some osteophytes off the inferior aspect of the distal clavicle. The AC joint was visualized and noted to be fairly arthritic. The motorized bur was introduced in the anterior portal site and a Mikayla procedure was performed without difficulty, decompressing the AC joint nicely. I turned my attention to the rotator cuff. There was a 1.5 cm rotator cuff tear. I debrided the margins getting down to stable tendon tissue. I introduced my motorized bur and abraded the footprint area, getting some petechial bleeding. I passed 2 everted mattress sutures through good bites of rotator cuff tendon. I punched a hole at the footprint area for insertion of an anchor. The 4 suture limbs were passed through the eyelet of an Arthrex 4.75 swivel lock anchor. I placed the eyelet into the prepunch to hold. I held in position while Johnie ANNA tensioned all 4 limbs of suture and deployed the anchor with good fixation noted. All residual suture limbs were now clipped. We had good compression of the tendon along the entire footprint. Instruments now removed from the portal sites. All portal sites were approximated with nylon suture. Sterile dressings were applied followed by a shoulder immobilizer. Jason ANNA assisted in this complex case. The patient was awakened, transferred to a bed, and taken to recovery in stable condition.
[2025-03-21 11:20] VITALS: TEMP 96.9
[2025-03-21 12:49] VITALS: BP 116/71; PULSE 56; RESP 16
== END 2025-03-21 12:55 | disposition home or self-care (01) ==
LOC: OR 07:44
PROVIDERS: ATTEND Orthopaedic Surgery
DX: S46.012A Strain of muscle(s) and tendon(s) of the rotator cuff of left shoulder, initial encounter (principal); M75.22 Bicipital tendinitis, left shoulder; M19.012 Primary osteoarthritis, left shoulder; E78.5 Hyperlipidemia, unspecified; I10 Essential (primary) hypertension; K21.9 Gastro-esophageal reflux disease without esophagitis; N40.0 Benign prostatic hyperplasia without lower urinary tract symptoms; Z79.899 Other long term (current) drug therapy; X58.XXXA Exposure to other specified factors, initial encounter
CPT/HCPCS: 64415; 29827; 29828; 29826; 29824; C1713 ×3; J2250; J0330; J1100; J0690; J2405; J2003; J3010; J2795; J2704; J1596